=== PATIENT | male | born 1950 | race Caucasian/White ===

== ENCOUNTER 2020-11-15 16:29 | Observation (INO) | payer MEDICARE, OTHER ==
[2020-11-15] MEDS ORDERED: Ondansetron 4 MG/2 ML SDV IVPUSH PRN (17:04)
[2020-11-15] MEDS ORDERED: Heparin Sodium 5,000 Units/ML Vial SUBCUT SCH (17:15)
[2020-11-15] MEDS: Lactated Ringers 1,000 ML IV SCH (17:36)
[2020-11-15] MEDS: Pantoprazole 40 MG in Sodium Chloride 0.9% 10 ML IV SCH (17:37)
[2020-11-15] MEDS ORDERED: Albuterol/Ipratropium 3.0-0.5 MG/3 ML Neb Soln NEB PRN (18:00)
[2020-11-15 18:02] LABS: CARBON DIOXIDE,CO2 18.5 mmol/L (21.0-32.0); POTASSIUM,K 5.2 mmol/L (3.5-5.1)
[2020-11-15 19:16] LABS: HEMOGLOBIN A1C 7.4 %
--- NOTE | 2020-11-15 19:57 | CT ---
INDICATION: Hematuria TECHNIQUE: CT Abdomen and pelvis without i.v. contrast. Coronal and sagittal reformats were obtained. COMPARISON: None FINDINGS: Lower chest: Unremarkable. Severe atherosclerotic calcifications are noted in the coronary arteries. Moderate anemia is present with the cardiac chambers appearing lucent with respect to the myocardium. Liver: Unremarkable. Spleen: Unremarkable. Pancreas: Unremarkable. Gallbladder: Two punctate calcified gallstones are noted. Kidney: A large multiloculated and septated cystic lesion is seen in the left posterior perirenal space measuring 15 x 8 cm, displacing the left kidney anteriorly. Severe wall thickening of the right renal pelvis and bladder are present. Severe bilateral hydroureter and moderate renal pelviectasis is present. There is a 3.3 cm low-density lesion in the upper pole of the left kidney which is incompletely assessed without intravenous contrast. A 1 mm left upper pole renal stone is noted. Adrenal: Unremarkable. Bowel: Unremarkable. The appendix is normal in appearance and size. Vascular: Unremarkable. Lymph: Unremarkable. Peritoneum: See above. No pneumoperitoneum is seen. No significant ascites is noted. Pelvis: A right posterior bladder diverticulum is present measuring 4 cm. Heterogeneous hyperdense material is present in the bladder lumen which may be due to retracted clot. A Matute catheter and small amount of gas are present within the bladder. Soft tissue: Unremarkable. Bone: Unremarkable for age. IMPRESSIONS: 1. A large multiloculated and septated cystic lesion is seen in the left posterior perirenal space measuring 15 x 8 cm, displacing the left kidney anteriorly. A cystic mass, urinoma, or perinephric abscess should be considered. Assessment with contrast enhanced CT may be helpful. 2. Severe atherosclerotic calcifications are noted in the coronary arteries. 3. Severe wall thickening of the right renal pelvis and bladder are present. Findings may be due to a urinary tract infection or cystitis. Assessment with cystoscopy is recommended. 4. Severe bilateral hydroureter and moderate renal pelviectasis is present. Findings may be due to vesicoureteral reflux or ureteral obstruction at the ureteral vesicular junction. Dictated by Ortiz Treviño MD @ 11/15/2020 7:56:47 PM Please note that all CT scans at this facility use dose modulation, iterative reconstruction, and/or weight-based dosing when appropriate to reduce radiation dose to as low as reasonably achievable. Dictated by: Ortiz Treviño MD @ 11/15/2020 19:56:51 (Electronically Signed)
[2020-11-15] MEDS ORDERED: 50% Dextrose in Water 50 ML Syringe IVPUSH PRN (20:40)
[2020-11-15] MEDS ORDERED: Glucagon,Human Recombinant 1 MG Vial IM PRN (20:40)
--- NOTE | 2020-11-15 20:43 | PCM.HP.2 ---
H&P History of Present Illness - General Date of Service: 11/15/20 Admit Problem/Dx: Admission Diagnosis/Problem Admission Diagnosis/Problem Urinary retention due to benign prostatic hyperplasia - History of Present Illness Initial Comments - Free Text/Narative: Patient is a 70-year-old male with past medical history of hypertension, type 2 diabetes, pacemaker, heavy drinker in the past, who was sent directly from the clinic for management of urinary retention. Patient states that he has not really followed up with any doctors since 2015, states after his original primary care doctor moved out of state, he did not really like his new primary care doctor and that he also had issues getting medications from his pharmacy and he decided to quit seeing doctors altogether. Patient states that for the past few months he has been losing weight very rapidly, states that he has lost almost 100 pounds since June 2020, patient states that he has also had loss of appetite and has not been eating and drinking as well. Patient states that he contributed his symptoms to his brother's ill health. Patient states that he was convinced by his family to see Last month. Patient saw Dr. Goldstein in the clinic who ordered some basic lab work and it was found out that patient has possible chronic kidney disease with significantly elevated creatinine of 4.1,. Patient was eventually referred to nephrology, Reportedly an ultrasound of the kidneys was done which showed hydronephrosis of bilateral kidney. , and a Matute catheter insertion was recommended due to concerns of chronic urinary retention. Patient states that he went to see Dr. Mcdermott today as Dr. Goldstein was not available. Matute catheter was inserted today, and 2800 mL of urinary output was noted through the catheter. The urine was found to be blood tinged and the doctor was concerned about post diureses syndrome. At that time the hematuria does not very significant which was deteriorated by Dr. mcdermott. Patient was admitted to the hospital for further management. Upon admission patient was found to have significant hematuria with large clots in the Matute bag, continuous bladder irrigation was initiated to prevent further clotting and resulting blockage. Patient denies chest pain, nausea, vomiting, abdominal pain, diarrhea. Patient states that the past few weeks he has not been peeing as much and when he pees it is in very small amounts, patient denies any bleeding in his urine up until today after the Matute insertion.. CT scan of the abdomen and pelvis without contrast was performed, which was significant for : A large multiloculated and septated cystic lesion in the left posterior pararenal space measuring 15 into 8 cm displacing the left kidney anteriorly, a cystic mass urinoma or perinephric abscess should be considered, severe atherosclerotic calcification in the coronary arteries, severe bilateral hydroureter and moderate renal pelviecstasis, severe wall thickening of the right renal pelvis and bladder were noted. Patient denies dysuria, fevers, chills. States that he does feel some bloating in his abdomen but no acute pain. - Related Data Allergies/Adverse Reactions: Allergies Allergy/AdvReac Type Severity Reaction Status Date / Time No Known Allergies Allergy Verified 11/15/20 16:40 Home Medications: Home Meds dilTIAZem HCL [Diltiazem 24Hr ER (Xr)] 120 mg PO BEDTIME 11/15/20 [History] Past Medical History HEENT History: Reports: Other (See Below) Other HEENT History: perforated ear drum right side Cardiovascular History: Reports: Hypertension, Other (See Below) Other Cardiovascular History: heart racing Genitourinary History: Reports: Acute Renal Failure, Chronic Renal Insuffiency Psychiatric History: Reports: Anxiety, Other (See Below) Other Psychiatric History: increased stress starting in jun 2020 Endocrine/Metabolic History: Reports: Diabetes, Type II - Past Surgical History HEENT Surgical History: Reports: Other (See Below) Other HEENT Surgeries/Procedures: ear drum Cardiovascular Surgical History: Reports: None GI Surgical History: Reports: Appendectomy Male Surgical History: Reports: Other (See Below) Other Male Surgeries/Procedures: hydrocele Endocrine Surgical History: Reports: None Musculoskeletal Surgical History: Reports: Other (See Below) Other Musculoskeletal Surgeries/Procedures:: ligament surgery right knee surgery left knee Social & Family History - Family History Family Medical History: No Pertinent Family History - Tobacco Use Tobacco Use Status *Q: Former Tobacco User Years of Tobacco use: 20 Used Tobacco, but Quit: Yes Month/Year Tobacco Last Used: 40 yrs Second Hand Smoke Exposure: No - Caffeine Use Caffeine Use: Reports: Coffee, Soda - Recreational Drug Use Recreational Drug Use: No H&P Review of Systems - Review of Systems: Review Of Systems: See Below General: Reports: Malaise, Weakness, Fatigue. Denies: Fever, Chills HEENT: Denies: Dysphasia, Ear Pain Pulmonary: Denies: Shortness of Breath, Wheezing, Pleuritic Chest Pain Cardiovascular: Denies: Chest Pain, Palpitations, Dyspnea on Exertion Gastrointestinal: Reports: Anorexia, Decreased Appetite. Denies: Abdominal Pain, Black Stool, Bloody Stool, Constipation, Diarrhea, Difficulty Swallowing, Hematemesis, Hematochezia Genitourinary: Reports: Frequency, Urgency, Incontinence, Hematuria, Retention, Flank Pain. Denies: Dysuria, Burning, Pain, Discharge Musculoskeletal: Denies: Neck Pain, Shoulder Pain Skin: Denies: Cyanosis, Jaundice, Mottled Psychiatric: Denies: Confusion, Depression, Mood Lability Neurological: Denies: Confusion, Dizziness, Headache Hematologic/Lymphatic: Reports: Anemia. Denies: Easy Bleeding, Easy Bruising Exam - Exam Exam: See Below - Vital Signs Vital Signs: Last Vital Signs Temp 36.9 C 11/15/20 16:43 Pulse 94 11/15/20 16:43 Resp 16 11/15/20 16:43 BP 119/75 11/15/20 16:43 Pulse Ox 100 11/15/20 16:43 Weight: 86.5 kg - Exam General: Alert, Oriented, Cooperative Neck: Supple Lungs: Clear to Auscultation, Normal Respiratory Effort Cardiovascular: Regular Rate, Regular Rhythm, Normal S1, Normal S2 GI/Abdominal Exam: Normal Bowel Sounds, Soft, Non-Tender. No: Rebound, Tender - Patient Data Lab Results Last 24 hrs: Laboratory Results - last 24 hr 11/15/20 11/15/20 11/15/20 Range/Units 17:12 17:12 18:50 WBC 9.99 (4.0-11.0) K/uL RBC 3.70 L (4.50-5.90) M/uL Hgb 8.2 L (13.0-17.0) g/dL Hct 26.8 L (38.0-50.0) % MCV 72.4 L (80.0-98.0) fL MCH 22.2 L (27.0-32.0) pg MCHC 30.6 L (31.0-37.0) g/dL RDW Std Deviation 44.6 (28.0-62.0) fl RDW Coeff of Ady 17 H (11.0-15.0) % Plt Count 370 (150-400) K/uL MPV 7.90 (7.40-12.00) fL Neut % (Auto) 81.1 H (48.0-80.0) % Lymph % (Auto) 10.7 L (16.0-40.0) % Hill % (Auto) 7.6 (0.0-15.0) % Eos % (Auto) 0.3 (0.0-7.0) % Baso % (Auto) 0.3 (0.0-1.5) % Neut # (Auto) 8.1 H (1.4-5.7) K/uL Lymph # (Auto) 1.1 (0.6-2.4) K/uL Hill # (Auto) 0.8 (0.0-0.8) K/uL Eos # (Auto) 0.0 (0.0-0.7) K/uL Baso # (Auto) 0.0 (0.0-0.1) K/uL Nucleated RBC % 0.0 /100WBC Nucleated RBCs # 0 K/uL INR Sodium 134 L (136-148) mmol/L Potassium 5.2 H (3.5-5.1) mmol/L Chloride 99 (98-107) mmol/L Carbon Dioxide 18.5 L (21.0-32.0) mmol/L BUN 67 H (7.0-18.0) mg/dL Creatinine 5.2 H (0.8-1.3) mg/dL Est Cr Clr Drug Dosing 14.08 mL/min Estimated GFR (MDRD) 11.0 ml/min Glucose 137 H (74-106) mg/dL Hemoglobin A1c (4.5 - 6.2) % Calcium 9.6 (8.5-10.1) mg/dL Phosphorus 5.8 H (2.6-4.7) mg/dL Magnesium 1.7 L (1.8-2.4) mg/dL Total Bilirubin 0.4 (0.2-1.0) mg/dL AST 14 L (15-37) IU/L ALT 20 (14-63) IU/L Alkaline Phosphatase 129 H (46-116) U/L Total Protein 8.5 H (6.4-8.2) g/dL Albumin 2.6 L (3.4-5.0) g/dL Globulin 5.9 H (2.6-4.0) g/dL Albumin/Globulin Ratio 0.4 L (0.9-1.6) Triglycerides 97 (0-200) mg/dL Cholesterol 125 (50-200) mg/dL LDL Cholesterol, Calc 70 (60-180) mg/dL VLDL Cholesterol 19 (5-55) mg/dL HDL Cholesterol 36 L (40-60) mg/dL Cholesterol/HDL Ratio 3.5 (3.3-6.0) TSH 3rd Generation 1.51 (0.36-3.74) uIU/mL Blood Type Antibody Screen Crossmatch 11/15/20 11/15/20 11/15/20 Range/Units 18:50 18:50 18:50 WBC (4.0-11.0) K/uL RBC (4.50-5.90) M/uL Hgb (13.0-17.0) g/dL Hct (38.0-50.0) % MCV (80.0-98.0) fL MCH (27.0-32.0) pg MCHC (31.0-37.0) g/dL RDW Std Deviation (28.0-62.0) fl RDW Coeff of Ady (11.0-15.0) % Plt Count (150-400) K/uL MPV (7.40-12.00) fL Neut % (Auto) (48.0-80.0) % Lymph % (Auto) (16.0-40.0) % Hill % (Auto) (0.0-15.0) % Eos % (Auto) (0.0-7.0) % Baso % (Auto) (0.0-1.5) % Neut # (Auto) (1.4-5.7) K/uL Lymph # (Auto) (0.6-2.4) K/uL Hill # (Auto) (0.0-0.8) K/uL Eos # (Auto) (0.0-0.7) K/uL Baso # (Auto) (0.0-0.1) K/uL Nucleated RBC % /100WBC Nucleated RBCs # K/uL INR 1.20 Sodium (136-148) mmol/L Potassium (3.5-5.1) mmol/L Chloride (98-107) mmol/L Carbon Dioxide (21.0-32.0) mmol/L BUN (7.0-18.0) mg/dL Creatinine (0.8-1.3) mg/dL Est Cr Clr Drug Dosing mL/min Estimated GFR (MDRD) ml/min Glucose (74-106) mg/dL Hemoglobin A1c 7.4 H (4.5 - 6.2) % Calcium (8.5-10.1) mg/dL Phosphorus (2.6-4.7) mg/dL Magnesium (1.8-2.4) mg/dL Total Bilirubin (0.2-1.0) mg/dL AST (15-37) IU/L ALT (14-63) IU/L Alkaline Phosphatase (46-116) U/L Total Protein (6.4-8.2) g/dL Albumin (3.4-5.0) g/dL Globulin (2.6-4.0) g/dL Albumin/Globulin Ratio (0.9-1.6) Triglycerides (0-200) mg/dL Cholesterol (50-200) mg/dL LDL Cholesterol, Calc (60-180) mg/dL VLDL Cholesterol (5-55) mg/dL HDL Cholesterol (40-60) mg/dL Cholesterol/HDL Ratio (3.3-6.0) TSH 3rd Generation (0.36-3.74) uIU/mL Blood Type B POSITIVE Antibody Screen NEGATIVE Crossmatch See Detail Result Diagrams: 11/15/20 23:05 11/15/20 17:12 Sepsis Event Note - Evaluation Sepsis Screening Result: No Definite Risk - Focused Exam Vital Signs: Vital Signs Temp Pulse Resp BP Pulse Ox 11/15/20 16:43 36.9 C 94 16 119/75 100 - Problem List (1) Renal insufficiency SNOMED Code(s): 554870745, 030605064 ICD Code: N28.9 - DISORDER OF KIDNEY AND URETER, UNSPECIFIED Status: Acute Current Visit: Yes (2) Hydronephrosis SNOMED Code(s): 68209114 ICD Code: N13.30 - UNSPECIFIED HYDRONEPHROSIS Status: Acute Current Visit: Yes (3) Hematuria SNOMED Code(s): 81967016 ICD Code: R31.9 - HEMATURIA, UNSPECIFIED Status: Acute Current Visit: Yes (4) Anemia SNOMED Code(s): 272508663 ICD Code: D64.9 - ANEMIA, UNSPECIFIED Status: Acute Current Visit: Yes (5) Chronic renal insufficiency SNOMED Code(s): 162030588 ICD Code: N18.9 - CHRONIC KIDNEY DISEASE, UNSPECIFIED Status: Acute Current Visit: Yes (6) Diabetes mellitus SNOMED Code(s): 89319475 ICD Code: E11.9 - TYPE 2 DIABETES MELLITUS WITHOUT COMPLICATIONS Status: Acute Current Visit: Yes (7) Hypertension SNOMED Code(s): 54287696 ICD Code: I10 - ESSENTIAL (PRIMARY) HYPERTENSION Status: Acute Current Visit: Yes (8) Abdominal mass SNOMED Code(s): 879470769 ICD Code: R19.00 - INTRA-ABD AND PELVIC SWELLING, MASS AND LUMP, UNSP SITE Status: Acute Current Visit: Yes Problem List Initiated/Reviewed/Updated: Yes Orders Last 24hrs: Active Orders 24 hr Category Date Time Status Patient Status [ADT] Routine ADT 11/15/20 17:04 Active Ambulate [RC] ASDIRECTED Care 11/15/20 17:04 Active Antiembolic Devices [RC] PER UNIT ROUTINE Care 11/15/20 17:05 Active Bladder Irrigation [RC] CONTINUOUS Care 11/15/20 18:35 Active Oxygen Therapy [RC] PRN Care 11/15/20 17:04 Active RT Aerosol Therapy [RC] ASDIRECTED Care 11/15/20 17:05 Active VTE/DVT Education [RC] PER UNIT ROUTINE Care 11/15/20 17:04 Active Vital Signs [RC] Q4H Care 11/15/20 17:04 Active Heart Healthy Diet [DIET] Diet 11/15/20 Dinner Active HEMOGLOBIN/HEMATOCRIT,HH [HEME] Routine Lab 11/15/20 23:00 Ordered RED BLOOD CELLS LP [BBK] Routine Lab 11/15/20 18:50 Results TYPE AND SCREEN [BBK] Routine Lab 11/15/20 18:50 Results Albuterol/Ipratropium [DuoNeb 3.0-0.5 MG/3 ML] Med 11/15/20 18:00 Active 3 ml NEB Q4HRRT PRN Dextrose 50% in Water Med 11/15/20 20:40 Ordered 50 ml IVPUSH ASDIRECTED PRN Glucagon,Human Recombinant [GlucaGen] Med 11/15/20 20:40 Ordered 1 mg IM ASDIRECTED PRN Insulin Aspart [NovoLOG] Med 11/16/20 07:30 Ordered See Protocol SUBCUT TIDAC Lactated Ringers [Ringers, Lactated] 1,000 ml Med 11/15/20 17:15 Active IV ASDIRECTED Ondansetron [Zofran] Med 11/15/20 17:04 Active 4 mg IVPUSH Q4H PRN Pantoprazole [ProTONIX IV] 40 mg Med 11/15/20 17:15 Active Sodium Chloride 0.9% [Normal Saline] 10 ml IV DAILY Catheter Care Education [OM.PC] Routine Ot 11/15/20 17:09 Ordered Sequential Compression Device [OM.PC] Per Unit Routine Oth 11/15/20 17:04 Ordered Medication Orders Albuterol/Ipratropium (Albuterol/Ipratropium 3.0-0.5 Mg/3 Ml Neb Soln) 3 ml NEB Q4HRRT PRN PRN Reason: Shortness Of Breath/wheezing Dextrose/Water (50% Dextrose In Water 50 Ml Syringe) 50 ml IVPUSH ASDIRECTED PRN PRN Reason: Hypoglycemia Glucagon (Glucagon,Human Recombinant 1 Mg Vial) 1 mg IM ASDIRECTED PRN PRN Reason: Hypoglycemia Pantoprazole Sodium 40 mg/ (Sodium Chloride) 10 mls @ 300 mls/hr IV DAILY ROSY Last Admin: 11/15/20 17:37 Dose: 300 mls/hr Documented by: ABA Lactated Ringer's (Ringers, Lactated) 1,000 mls @ 125 mls/hr IV ASDIRECTED ROSY Last Admin: 11/15/20 17:36 Dose: 125 mls/hr Documented by: ABA Insulin Aspart (Insulin Aspart 100 Units/Ml 3 Ml Pen) 0 unit SUBCUT TIDAC ROSY; Protocol Ondansetron HCl (Ondansetron 4 Mg/2 Ml Sdv) 4 mg IVPUSH Q4H PRN PRN Reason: Nausea/Vomiting Assessment/Plan Comment:: 70-year-old male admitted for obstructive uropathy, hematuria Patient likely has some acute renal insufficiency or chronic kidney disease likely secondary to chronic obstructive uropathy Continue continuous bladder irrigation with a Matute catheter to prevent clot formation We will check repeat hemoglobin, patient may need blood transfusion to optimize his hemoglobin CT scan of the abdomen noted, a large multiloculated and septated cystic lesion seen in the left posterior pararenal space, could be cystic mass, urinoma or perinephric abscess, there is also severe wall thickening of the right renal pelvis and bladder and cystoscopy was recommended. Continue IV fluid hydration with lactated Ringer's We will check UA, possible UTI/pyelonephritis will likely treat with broad- spectrum antibiotic Recheck BMP in the morning Patient needs urological evaluation, unfortunately we do not have urology service available in this hospital, I do not believe patient needs to be urgently transferred at this point given that he is hemodynamically stable and tolerating continuous bladder irrigation well,will touch base with urology at [facility] in a.m. and discussed the case with them for further recommendation, which could be outpatient work-up versus hospital to hospital transfer for further evaluation based on patient's clinical course, in the meantime I will optimize the patient's hemoglobin and renal status. Patient also needs IR guided biopsy of the mass which could be a malignant mass versus abscess, We will obtain records from [place] of the work-up that was done by logging crew foreman including ultrasound imaging in AM. Continue sliding scale insulin for diabetes SCD for DVT prophylaxis avoid blood thinners due to ongoing hematuria
[2020-11-15] MEDS ORDERED: Piperacillin/Tazobactam 3.375 GM in Sodium Chloride 0.9% 50 ML IV SCH (23:30)
[2020-11-16] MEDS: Lactated Ringers 1,000 ML IV SCH ×2 (02:52→11:50)
[2020-11-16 06:45] LABS: CARBON DIOXIDE,CO2 21.1 mmol/L (21.0-32.0); POTASSIUM,K 5.2 mmol/L (3.5-5.1)
[2020-11-16] MEDS: Insulin Aspart 100 Units/ML 3 ML Pen SUBCUT SCH ×2 (07:22→11:26)
[2020-11-16] MEDS: Piperacillin/Tazobactam 2.25 GM in Sodium Chloride 0.9% 50 ML IV SCH ×3 (08:22)
[2020-11-16] MEDS: Pantoprazole 40 MG in Sodium Chloride 0.9% 10 ML IV SCH (09:31)
[2020-11-16] MEDS ORDERED: Magnesium Sulfate/Water 2 GM in Premix Bag 1 BAG IV ONE (10:26)
--- NOTE | 2020-11-16 11:24 | PCM.DCSUM1 ---
<Yas Ascencio - Last Filed: 11/16/20 14:08> Discharge Summary - Hospital Course HPI Initial Comments: Patient is a 70-year-old male with past medical history of hypertension, type 2 diabetes, pacemaker, heavy drinker in the past, who was sent directly from the clinic for management of urinary retention. Patient states that he has not really followed up with any doctors since 2015, states after his original primary care doctor moved out of state, he did not really like his new primary care doctor and that he also had issues getting medications from his pharmacy and he decided to quit seeing doctors altogether. Patient states that for the past few months he has been losing weight very rapidly, states that he has lost almost 100 pounds since June 2020, patient states that he has also had loss of appetite and has not been eating and drinking as well. Patient states that he contributed his symptoms to his brother's ill health. Patient states that he was convinced by his family to see Last month. Patient saw Dr. Goldstein in the clinic who ordered some basic lab work and it was found out that patient has possible chronic kidney disease with significantly elevated creatinine of 4.1,. Patient was eventually referred to nephrology, Reportedly an ultrasound of the kidneys was done which showed hydronephrosis of bilateral kidney. , and a Matute catheter insertion was recommended due to concerns of chronic urinary retention. Patient states that he went to see Dr. Gilbert today as Dr. Goldstein was not available. Matute catheter was inserted today, and 2800 mL of urinary output was noted through the catheter. The urine was found to be blood tinged and the doctor was concerned about post diureses syndrome. At that time the hematuria does not very significant which was deteriorated by Dr. gilbert. Patient was admitted to the hospital for further management. Upon admission patient was found to have significant hematuria with large clots in the Matute bag, continuous bladder irrigation was initiated to prevent further clotting and resulting blockage. Patient denies chest pain, nausea, vomiting, abdominal pain, diarrhea. Patient states that the past few weeks he has not been peeing as much and when he pees it is in very small amounts, patient denies any bleeding in his urine up until today after the Matute insertion.. CT scan of the abdomen and pelvis without contrast was performed, which was significant for : A large multiloculated and septated cystic lesion in the left posterior pararenal space measuring 15 into 8 cm displacing the left kidney anteriorly, a cystic mass urinoma or perinephric abscess should be considered, severe atherosclerotic calcification in the coronary arteries, severe bilateral hydroureter and moderate renal pelviecstasis, severe wall thickening of the right renal pelvis and bladder were noted. Patient denies dysuria, fevers, chills. States that he does feel some bloating in his abdomen but no acute pain. Brief History: Patient was admitted with significant urinary retention secondary to BPH noted to have significant perirenal mass approximately 15 to 18 cm displacing left kidney anteriorly. Had Matute placed, with bladder irrigation and started on antibiotics. Patient was not found to have any signs of infection such as fever, CVA tenderness or suprapubic tenderness. Patient will require higher level of care and therefore transfer to a higher level of care will be arranged for further work-up and possible IR intervention. Diagnosis: Stroke: No - Discharge Data Discharge Date: 11/16/20 Discharge Disposition: DC/Tfer to Acute Hospital 02 Condition: Good - Referral to Home Health Primary Care Physician: Arturo Goldstein MD - Patient Instructions Diet: Heart Healthy Diet Activity: As Tolerated Notify Provider of: Fever, Increased Pain, Swelling and Redness, Drainage, Nausea and/or Vomiting - Discharge Plan *PRESCRIPTION DRUG MONITORING PROGRAM REVIEWED*: Not Applicable *COPY OF PRESCRIPTION DRUG MONITORING REPORT IN PATIENT SHANNA: Not Applicable Home Medications: Home Meds dilTIAZem HCL [Diltiazem 24Hr ER (Xr)] 120 mg PO BEDTIME 11/15/20 [History] Albuterol/Ipratropium [DuoNeb 3.0-0.5 MG/3 ML] 3 ml NEB Q4HRRT PRN neb 11/16/20 [Rx] Dextrose 50% in Water [Dextrose 50%-Water] 50 ml IVPUSH ASDIRECTED PRN syringe 11/16/20 [Rx] Glucagon,Human Recombinant [Glucagen] 1 mg IM ASDIRECTED PRN vial 11/16/20 [Rx] Insulin Aspart [NovoLOG] 0 unit SUBCUT TIDAC pen 11/16/20 [Rx] Lactated Ringers [Ringers, Lactated] 125 ml IV ASDIRECTED bag 11/16/20 [Rx] Ondansetron [Zofran] 4 mg IVPUSH Q4H PRN vial 11/16/20 [Rx] Pantoprazole [ProTONIX IV] 40 mg IV DAILY vial 11/16/20 [Rx] Piperacillin/Tazobactam [Zosyn] 2.25 gm IV Q8H vial 11/16/20 [Rx] Oxygen Therapy Mode: Room Air Referrals: Arturo Goldstein MD [Primary Care Provider] - - Discharge Summary/Plan Comment DC Time >30 min.: Yes (Transferred to [facility] for higher level of care work-up) Discharge Summary/Plan Comment: 70-year-old male treated for obstructive uropathy, with Matute catheter in place requiring bladder irrigation with significant hematuria and blood clots noted. Patient has remained vitally stable overnight. This morning denies any discomfort such as suprapubic tenderness or CVA tenderness. Remained afebrile, normotensive. Last night diltiazem was held due to low blood pressures and hematuria. Resume home dose of diltiazem at noon. Patient will require higher level of care and further work-up. Was previously seen by Dr. Valentina Domínguez [place]. Imaging studies indicated large perirenal abscess versus Uroma measuring approximately 15 to 18 cm. Patient will require further work-up and possible IR intervention. Dr. Jain graciously accepted direct transfer and has been notified of patient's current status as well as previously noted mass. - Patient Data Vitals - Most Recent: Last Vital Signs Temp 98.6 F 11/16/20 11:07 Pulse 102 H 11/16/20 11:07 Resp 20 11/16/20 11:07 BP 126/78 11/16/20 11:07 Pulse Ox 99 11/16/20 11:07 Weight - Most Recent: 86.5 kg I&O - Last 24 hours: Intake & Output 11/15/20 11/16/20 11/16/20 22:59 06:59 14:59 Intake Total 1000 Balance 1000 Lab Results - Last 24 hrs: Laboratory Results - last 24 hr 11/15/20 11/15/20 11/15/20 Range/Units 17:12 17:12 18:50 WBC 9.99 (4.0-11.0) K/uL RBC 3.70 L (4.50-5.90) M/uL Hgb 8.2 L (13.0-17.0) g/dL Hct 26.8 L (38.0-50.0) % MCV 72.4 L (80.0-98.0) fL MCH 22.2 L (27.0-32.0) pg MCHC 30.6 L (31.0-37.0) g/dL RDW Std Deviation 44.6 (28.0-62.0) fl RDW Coeff of Ady 17 H (11.0-15.0) % Plt Count 370 (150-400) K/uL MPV 7.90 (7.40-12.00) fL Neut % (Auto) 81.1 H (48.0-80.0) % Lymph % (Auto) 10.7 L (16.0-40.0) % [place] % (Auto) 7.6 (0.0-15.0) % Eos % (Auto) 0.3 (0.0-7.0) % Baso % (Auto) 0.3 (0.0-1.5) % Neut # (Auto) 8.1 H (1.4-5.7) K/uL Lymph # (Auto) 1.1 (0.6-2.4) K/uL [place] # (Auto) 0.8 (0.0-0.8) K/uL Eos # (Auto) 0.0 (0.0-0.7) K/uL Baso # (Auto) 0.0 (0.0-0.1) K/uL Nucleated RBC % 0.0 /100WBC Nucleated RBCs # 0 K/uL INR Sodium 134 L (136-148) mmol/L Potassium 5.2 H (3.5-5.1) mmol/L Chloride 99 (98-107) mmol/L Carbon Dioxide 18.5 L (21.0-32.0) mmol/L BUN 67 H (7.0-18.0) mg/dL Creatinine 5.2 H (0.8-1.3) mg/dL Est Cr Clr Drug Dosing 14.08 mL/min Estimated GFR (MDRD) 11.0 ml/min Glucose 137 H (74-106) mg/dL POC Glucose (70-99) mg/dL Hemoglobin A1c (4.5 - 6.2) % Calcium 9.6 (8.5-10.1) mg/dL Phosphorus 5.8 H (2.6-4.7) mg/dL Magnesium 1.7 L (1.8-2.4) mg/dL Total Bilirubin 0.4 (0.2-1.0) mg/dL AST 14 L (15-37) IU/L ALT 20 (14-63) IU/L Alkaline Phosphatase 129 H (46-116) U/L Total Protein 8.5 H (6.4-8.2) g/dL Albumin 2.6 L (3.4-5.0) g/dL Globulin 5.9 H (2.6-4.0) g/dL Albumin/Globulin Ratio 0.4 L (0.9-1.6) Triglycerides 97 (0-200) mg/dL Cholesterol 125 (50-200) mg/dL LDL Cholesterol, Calc 70 (60-180) mg/dL VLDL Cholesterol 19 (5-55) mg/dL HDL Cholesterol 36 L (40-60) mg/dL Cholesterol/HDL Ratio 3.5 (3.3-6.0) TSH 3rd Generation 1.51 (0.36-3.74) uIU/mL Urine Color Urine Appearance Urine pH (5.0-8.0) Ur Specific [place] (1.001-1.035) Urine Protein (NEGATIVE) mg/dL Urine Glucose (UA) (NEGATIVE) mg/dL Urine Ketones (NEGATIVE) mg/dL Urine Occult Blood (NEGATIVE) Urine Nitrite (NEGATIVE) Urine Bilirubin (NEGATIVE) Urine Urobilinogen (<2.0) EU/dL Ur Leukocyte Esterase (NEGATIVE) Urine RBC (0-2/HPF) Urine WBC (0-5/HPF) Ur Epithelial Cells (NONE-FEW) Urine Bacteria (NEGATIVE) SARS-CoV-2 RNA (FAUSTINA) (NEGATIVE) Blood Type Antibody Screen Crossmatch 11/15/20 11/15/20 11/15/20 Range/Units 18:50 18:50 18:50 WBC (4.0-11.0) K/uL RBC (4.50-5.90) M/uL Hgb (13.0-17.0) g/dL Hct (38.0-50.0) % MCV (80.0-98.0) fL MCH (27.0-32.0) pg MCHC (31.0-37.0) g/dL RDW Std Deviation (28.0-62.0) fl RDW Coeff of Ady (11.0-15.0) % Plt Count (150-400) K/uL MPV (7.40-12.00) fL Neut % (Auto) (48.0-80.0) % Lymph % (Auto) (16.0-40.0) % [place] % (Auto) (0.0-15.0) % Eos % (Auto) (0.0-7.0) % Baso % (Auto) (0.0-1.5) % Neut # (Auto) (1.4-5.7) K/uL Lymph # (Auto) (0.6-2.4) K/uL [place] # (Auto) (0.0-0.8) K/uL Eos # (Auto) (0.0-0.7) K/uL Baso # (Auto) (0.0-0.1) K/uL Nucleated RBC % /100WBC Nucleated RBCs # K/uL INR 1.20 Sodium (136-148) mmol/L Potassium (3.5-5.1) mmol/L Chloride (98-107) mmol/L Carbon Dioxide (21.0-32.0) mmol/L BUN (7.0-18.0) mg/dL Creatinine (0.8-1.3) mg/dL Est Cr Clr Drug Dosing mL/min Estimated GFR (MDRD) ml/min Glucose (74-106) mg/dL POC Glucose (70-99) mg/dL Hemoglobin A1c 7.4 H (4.5 - 6.2) % Calcium (8.5-10.1) mg/dL Phosphorus (2.6-4.7) mg/dL Magnesium (1.8-2.4) mg/dL Total Bilirubin (0.2-1.0) mg/dL AST (15-37) IU/L ALT (14-63) IU/L Alkaline Phosphatase (46-116) U/L Total Protein (6.4-8.2) g/dL Albumin (3.4-5.0) g/dL Globulin (2.6-4.0) g/dL Albumin/Globulin Ratio (0.9-1.6) Triglycerides (0-200) mg/dL Cholesterol (50-200) mg/dL LDL Cholesterol, Calc (60-180) mg/dL VLDL Cholesterol (5-55) mg/dL HDL Cholesterol (40-60) mg/dL Cholesterol/HDL Ratio (3.3-6.0) TSH 3rd Generation (0.36-3.74) uIU/mL Urine Color Urine Appearance Urine pH (5.0-8.0) Ur Specific [place] (1.001-1.035) Urine Protein (NEGATIVE) mg/dL Urine Glucose (UA) (NEGATIVE) mg/dL Urine Ketones (NEGATIVE) mg/dL Urine Occult Blood (NEGATIVE) Urine Nitrite (NEGATIVE) Urine Bilirubin (NEGATIVE) Urine Urobilinogen (<2.0) EU/dL Ur Leukocyte Esterase (NEGATIVE) Urine RBC (0-2/HPF) Urine WBC (0-5/HPF) Ur Epithelial Cells (NONE-FEW) Urine Bacteria (NEGATIVE) SARS-CoV-2 RNA (FA[place]) (NEGATIVE) Blood Type B POSITIVE Antibody Screen NEGATIVE Crossmatch See Detail 11/15/20 11/15/20 11/15/20 Range/Units 22:15 22:20 23:05 WBC (4.0-11.0) K/uL RBC (4.50-5.90) M/uL Hgb 8.2 L (13.0-17.0) g/dL Hct 26.6 L (38.0-50.0) % MCV (80.0-98.0) fL MCH (27.0-32.0) pg MCHC (31.0-37.0) g/dL RDW Std Deviation (28.0-62.0) fl RDW Coeff of Ady (11.0-15.0) % Plt Count (150-400) K/uL MPV (7.40-12.00) fL Neut % (Auto) (48.0-80.0) % Lymph % (Auto) (16.0-40.0) % [place] % (Auto) (0.0-15.0) % Eos % (Auto) (0.0-7.0) % Baso % (Auto) (0.0-1.5) % Neut # (Auto) (1.4-5.7) K/uL Lymph # (Auto) (0.6-2.4) K/uL [place] # (Auto) (0.0-0.8) K/uL Eos # (Auto) (0.0-0.7) K/uL Baso # (Auto) (0.0-0.1) K/uL Nucleated RBC % /100WBC Nucleated RBCs # K/uL INR Sodium (136-148) mmol/L Potassium (3.5-5.1) mmol/L Chloride (98-107) mmol/L Carbon Dioxide (21.0-32.0) mmol/L BUN (7.0-18.0) mg/dL Creatinine (0.8-1.3) mg/dL Est Cr Clr Drug Dosing mL/min Estimated GFR (MDRD) ml/min Glucose (74-106) mg/dL POC Glucose (70-99) mg/dL Hemoglobin A1c (4.5 - 6.2) % Calcium (8.5-10.1) mg/dL Phosphorus (2.6-4.7) mg/dL Magnesium (1.8-2.4) mg/dL Total Bilirubin (0.2-1.0) mg/dL AST (15-37) IU/L ALT (14-63) IU/L Alkaline Phosphatase (46-116) U/L Total Protein (6.4-8.2) g/dL Albumin (3.4-5.0) g/dL Globulin (2.6-4.0) g/dL Albumin/Globulin Ratio (0.9-1.6) Triglycerides (0-200) mg/dL Cholesterol (50-200) mg/dL LDL Cholesterol, Calc (60-180) mg/dL VLDL Cholesterol (5-55) mg/dL HDL Cholesterol (40-60) mg/dL Cholesterol/HDL Ratio (3.3-6.0) TSH 3rd Generation (0.36-3.74) uIU/mL Urine Color RED Urine Appearance CLOUDY Urine pH 7.5 (5.0-8.0) Ur Specific [place] 1.020 (1.001-1.035) Urine Protein >=300 H (NEGATIVE) mg/dL Urine Glucose (UA) 100 H (NEGATIVE) mg/dL Urine Ketones NEGATIVE (NEGATIVE) mg/dL Urine Occult Blood LARGE H (NEGATIVE) Urine Nitrite POSITIVE H (NEGATIVE) Urine Bilirubin NEGATIVE (NEGATIVE) Urine Urobilinogen 0.2 (<2.0) EU/dL Ur Leukocyte Esterase NEGATIVE (NEGATIVE) Urine RBC TOO NUMEROUS TO CT (0-2/HPF) Urine WBC 1-5 (0-5/HPF) Ur Epithelial Cells RARE (NONE-FEW) Urine Bacteria FEW (NEGATIVE) SARS-CoV-2 RNA ([place]) NEGATIVE (NEGATIVE) Blood Type Antibody Screen Crossmatch 11/16/20 11/16/20 11/16/20 Range/Units 05:45 05:45 06:23 WBC 10.58 (4.0-11.0) K/uL RBC 3.72 L (4.50-5.90) M/uL Hgb 8.0 L (13.0-17.0) g/dL Hct 26.9 L (38.0-50.0) % MCV 72.3 L (80.0-98.0) fL MCH 21.5 L (27.0-32.0) pg MCHC 29.7 L (31.0-37.0) g/dL RDW Std Deviation 45.0 (28.0-62.0) fl RDW Coeff of Ady 17 H (11.0-15.0) % Plt Count 338 (150-400) K/uL MPV 8.00 (7.40-12.00) fL Neut % (Auto) 78.2 (48.0-80.0) % Lymph % (Auto) 13.8 L (16.0-40.0) % [place] % (Auto) 7.0 (0.0-15.0) % Eos % (Auto) 0.7 (0.0-7.0) % Baso % (Auto) 0.3 (0.0-1.5) % Neut # (Auto) 8.3 H (1.4-5.7) K/uL Lymph # (Auto) 1.5 (0.6-2.4) K/uL [place] # (Auto) 0.7 (0.0-0.8) K/uL Eos # (Auto) 0.1 (0.0-0.7) K/uL Baso # (Auto) 0.0 (0.0-0.1) K/uL Nucleated RBC % 0.0 /100WBC Nucleated RBCs # 0 K/uL INR Sodium 139 (136-148) mmol/L Potassium 5.2 H (3.5-5.1) mmol/L Chloride 104 (98-107) mmol/L Carbon Dioxide 21.1 (21.0-32.0) mmol/L BUN 56 H (7.0-18.0) mg/dL Creatinine 4.1 H (0.8-1.3) mg/dL Est Cr Clr Drug Dosing 17.86 mL/min Estimated GFR (MDRD) 14.5 ml/min Glucose 122 H (74-106) mg/dL POC Glucose 126 H (70-99) mg/dL Hemoglobin A1c (4.5 - 6.2) % Calcium 9.0 (8.5-10.1) mg/dL Phosphorus 5.7 H (2.6-4.7) mg/dL Magnesium 1.6 L (1.8-2.4) mg/dL Total Bilirubin (0.2-1.0) mg/dL AST (15-37) IU/L ALT (14-63) IU/L Alkaline Phosphatase (46-116) U/L Total Protein (6.4-8.2) g/dL Albumin (3.4-5.0) g/dL Globulin (2.6-4.0) g/dL Albumin/Globulin Ratio (0.9-1.6) Triglycerides (0-200) mg/dL Cholesterol (50-200) mg/dL LDL Cholesterol, Calc (60-180) mg/dL VLDL Cholesterol (5-55) mg/dL HDL Cholesterol (40-60) mg/dL Cholesterol/HDL Ratio (3.3-6.0) TSH 3rd Generation (0.36-3.74) uIU/mL Urine Color Urine Appearance Urine pH (5.0-8.0) Ur Specific [place] (1.001-1.035) Urine Protein (NEGATIVE) mg/dL Urine Glucose (UA) (NEGATIVE) mg/dL Urine Ketones (NEGATIVE) mg/dL Urine Occult Blood (NEGATIVE) Urine Nitrite (NEGATIVE) Urine Bilirubin (NEGATIVE) Urine Urobilinogen (<2.0) EU/dL Ur Leukocyte Esterase (NEGATIVE) Urine RBC (0-2/HPF) Urine WBC (0-5/HPF) Ur Epithelial Cells (NONE-FEW) Urine Bacteria (NEGATIVE) SARS-CoV-2 RNA ([place]) (NEGATIVE) Blood Type Antibody Screen Crossmatch Med Orders - Current: Current Medications Albuterol/Ipratropium (Albuterol/Ipratropium 3.0-0.5 Mg/3 Ml Neb Soln) 3 ml NEB Q4HRRT PRN PRN Reason: Shortness Of Breath/wheezing Dextrose/Water (50% Dextrose In Water 50 Ml Syringe) 50 ml IVPUSH ASDIRECTED PRN PRN Reason: Hypoglycemia Glucagon (Glucagon,Human Recombinant 1 Mg Vial) 1 mg IM ASDIRECTED PRN PRN Reason: Hypoglycemia Pantoprazole Sodium 40 mg/ (Sodium Chloride) 10 mls @ 300 mls/hr IV DAILY [facility] Last Admin: 11/16/20 09:31 Dose: 300 mls/hr Documented by: Lactated Ringer's (Ringers, Lactated) 1,000 mls @ 125 mls/hr IV ASDIRECTED ROSY Last Admin: 11/16/20 02:52 Dose: 125 mls/hr Documented by: Piperacillin Sod/Tazobactam (Sod 2.25 gm/ Sodium Chloride) 50 mls @ 100 mls/hr IV Q8H [facility] Last Admin: 11/16/20 08:22 Dose: 100 mls/hr Documented by: Magnesium Sulfate 2 gm/ Premix 50 mls @ 12.5 mls/hr IV ONETIME ONE Stop: 11/16/20 14:25 Last Admin: 11/16/20 10:59 Dose: 12.5 mls/hr Documented by: Insulin Aspart (Insulin Aspart 100 Units/Ml 3 Ml Pen) 0 unit SUBCUT TIDAC [facility]; Protocol Last Admin: 11/16/20 07:22 Dose: Not Given Documented by: Ondansetron HCl (Ondansetron 4 Mg/2 Ml Sdv) 4 mg IVPUSH Q4H PRN PRN Reason: Nausea/Vomiting Discontinued Medications Heparin Sodium (Porcine) (Heparin Sodium 5,000 Units/Ml Vial) 5,000 units SUBCUT Q8H ROSY Piperacillin Sod/Tazobactam (Sod 3.375 gm/ Sodium Chloride) 50 mls @ 100 mls/hr IV Q12H [facility] <Tessa Hay - Last Filed: 11/17/20 11:31> Discharge Summary - Referral to Home Health Primary Care Physician: Arturo Goldstein MD - Discharge Diagnosis/Problem(s) (1) Renal insufficiency SNOMED Code(s): 316006619, 697788316 ICD Code: N28.9 - DISORDER OF KIDNEY AND URETER, UNSPECIFIED Status: Acute (2) Hydronephrosis SNOMED Code(s): 87513243 ICD Code: N13.30 - UNSPECIFIED HYDRONEPHROSIS Status: Acute (3) Hematuria SNOMED Code(s): 08792783 ICD Code: R31.9 - HEMATURIA, UNSPECIFIED Status: Acute (4) Anemia SNOMED Code(s): 012557247 ICD Code: D64.9 - ANEMIA, UNSPECIFIED Status: Acute (5) Chronic renal insufficiency SNOMED Code(s): 510268083 ICD Code: N18.9 - CHRONIC KIDNEY DISEASE, UNSPECIFIED Status: Acute (6) Diabetes mellitus SNOMED Code(s): 01825754 ICD Code: E11.9 - TYPE 2 DIABETES MELLITUS WITHOUT COMPLICATIONS Status: Acute (7) Hypertension SNOMED Code(s): 36568945 ICD Code: I10 - ESSENTIAL (PRIMARY) HYPERTENSION Status: Acute (8) Abdominal mass SNOMED Code(s): 242118337 ICD Code: R19.00 - INTRA-ABD AND PELVIC SWELLING, MASS AND LUMP, UNSP SITE Status: Acute - Discharge Summary/Plan Comment Discharge Summary/Plan Comment: I have seen and evaluated the patient and agree with the residents note unless specified in my note - Patient Data Vitals - Most Recent: Last Vital Signs Temp 37.0 C 11/16/20 13:00 Pulse 102 H 11/16/20 13:00 Resp 20 11/16/20 13:00 BP 151/92 H 11/16/20 13:00 Pulse Ox 100 11/16/20 13:00 Lab Results - Last 24 hrs: Laboratory Results - last 24 hr 11/15/20 Range/Units 18:50 Crossmatch See Detail Med Orders - Current: Current Medications Discontinued Medications Albuterol/Ipratropium (Albuterol/Ipratropium 3.0-0.5 Mg/3 Ml Neb Soln) 3 ml NEB Q4HRRT PRN PRN Reason: Shortness Of Breath/wheezing Dextrose/Water (50% Dextrose In Water 50 Ml Syringe) 50 ml IVPUSH ASDIRECTED PRN PRN Reason: Hypoglycemia Diltiazem HCl (Diltiazem 120 Mg Cap.Cd) 120 mg PO ONETIME ONE Stop: 11/16/20 11:30 Last Admin: 11/16/20 11:48 Dose: 120 mg Documented by: Diltiazem HCl (Diltiazem 120 Mg Cap.Cd) 120 mg PO BEDTIME ROSY Glucagon (Glucagon,Human Recombinant 1 Mg Vial) 1 mg IM ASDIRECTED PRN PRN Reason: Hypoglycemia Heparin Sodium (Porcine) (Heparin Sodium 5,000 Units/Ml Vial) 5,000 units SUBCUT Q8H ROSY Pantoprazole Sodium 40 mg/ (Sodium Chloride) 10 mls @ 300 mls/hr IV DAILY [facility] Last Admin: 11/16/20 09:31 Dose: 300 mls/hr Documented by: Lactated Ringer's (Ringers, Lactated) 1,000 mls @ 125 mls/hr IV ASDIRECTED [facility] Last Admin: 11/16/20 11:50 Dose: 125 mls/hr Documented by: Piperacillin Sod/Tazobactam (Sod 3.375 gm/ Sodium Chloride) 50 mls @ 100 mls/hr IV Q12H [facility] Piperacillin Sod/Tazobactam (Sod 2.25 gm/ Sodium Chloride) 50 mls @ 100 mls/hr IV Q8H [facility] Last Admin: 11/16/20 08:22 Dose: 100 mls/hr Documented by: Magnesium Sulfate 2 gm/ Premix 50 mls @ 12.5 mls/hr IV ONETIME ONE Stop: 11/16/20 14:25 Last Admin: 11/16/20 10:59 Dose: 12.5 mls/hr Documented by: Insulin Aspart (Insulin Aspart 100 Units/Ml 3 Ml Pen) 0 unit SUBCUT TIDAC [facility]; Protocol Last Admin: 11/16/20 11:26 Dose: Not Given Documented by: Ondansetron HCl (Ondansetron 4 Mg/2 Ml Sdv) 4 mg IVPUSH Q4H PRN PRN Reason: Nausea/Vomiting
[2020-11-16] MEDS ORDERED: Diltiazem 120 MG Cap.CD PO ONE (11:29)
[2020-11-16] MEDS ORDERED: Diltiazem 120 MG Cap.CD PO SCH (21:00)
== END 2020-11-16 14:00 ==
LOC: MW.MS 16:29
PROVIDERS: ADMIT Student in an Organized Health Care Education/Training Program; ATTEND Student in an Organized Health Care Education/Training Program
DX: N13.30 Unspecified hydronephrosis (principal); E11.22 Type 2 diabetes mellitus with diabetic chronic kidney disease; I12.9 Hypertensive chronic kidney disease with stage 1 through stage 4 chronic kidney disease, or unspecified chronic kidney disease; N18.9 Chronic kidney disease, unspecified; D64.9 Anemia, unspecified; Z20.822 Contact with and (suspected) exposure to COVID-19; Z95.0 Presence of cardiac pacemaker; Z87.891 Personal history of nicotine dependence; Z79.899 Other long term (current) drug therapy
CPT/HCPCS: 36415; 51702; 74176; 80048; 80053; 80061; 81001; 82947; 83036; 83735; 84100; 84443; 85014; 85018; 85025; 85610; 86850; 86900; 86901; 86920; 86921; 86922; 87086; A9270; C9113; G0379; J2543; J3475; J7120; U0002; 99217; 99218